=== PATIENT | female | born 1950 | race Caucasian/White ===

== ENCOUNTER 2016-10-12 05:34 | Inpatient (IN) | payer OTHER ==
[2016-10-12] VITALS (9 sets, daily range): BP systolic 148–195; BP diastolic 78–91; PULSE 60–94; RESP 17–18; TEMP 96.2–98.9; O2SAT 96–99
[~2016-10-12] VITALS: Ht 154.9 cm; Wt 61.4 kg
[~2016-10-12 05:34] MED LIST: ASPI81TA82 PO; GLIM1 PO; HYDR50TA94 PO; MELA10TA3 PO; METF-324 PO; TAB-TAB PO; ZOSTINJ SQ
[2016-10-12] MEDS ORDERED: METF500T PO (05:42)
[2016-10-12] MEDS ORDERED: ACETAMINOPHEN/HYDROcodone 325 MG/5 MG TAB PO ONE (05:45)
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
[2016-10-12] MEDS ORDERED: NORC5TAB PO (06:49)
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
[2016-10-12] MEDS ORDERED: MORPHINE SULFATE 4 MG/ML INJ IV PUSH ONE (07:30)
[2016-10-12] MEDS ORDERED: SODIUM CHLORIDE 0.9% FLUSH 10 ML FLUSH IVF PRN (07:30)
[2016-10-12] MEDS: SODIUM CHLOR 0.9% 1000 ML INJ 1,000 ML IV SCH ×3 (07:30→23:30)
[2016-10-12] MEDS ORDERED: ONDANSETRON HCL 4 MG/2 ML VIAL IVP ONE (07:30)
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
[2016-10-12 08:33] LABS: AUTOMATED NEUTROPHIL # 8.1 TH/MM3 (1.8-7.7); BASOPHIL # 0.1 TH/MM3 (0-0.2); BASOPHIL % 0.8 % (0.0-2.0); EOSINOPHIL # 0.1 TH/MM3 (0-0.4); EOSINOPHIL % 1.1 % (0.0-4.0); HEMATOCRIT 31.1 % (35.0-46.0); HEMO FLAGS DIFF FINAL; LYMPH % 12.1 % (9.0-44.0); LYMPHOCYTE # 1.2 TH/MM3 (1.0-4.8); MEAN CELL VOLUME 95.9 FL (80.0-100.0); MEAN CORPUSCULAR HEMOGLOBIN 33.5 PG (27.0-34.0); MEAN CORPUSCULAR HGB CONC 34.9 % (32.0-36.0); MONO % 5.2 % (0.0-8.0); NEUT % 80.8 % (16.0-70.0); PLATELET COUNT 282 TH/MM3 (150-450); RED BLOOD COUNT 3.24 MIL/MM3 (4.00-5.30); RED CELL DISTRIBUTION WIDTH 13.5 % (11.6-17.2); WHITE BLOOD COUNT 10.1 TH/MM3 (4.0-11.0)
[2016-10-12 08:45] LABS: PROTHROMBIN TIME - PATIENT 11.1 SEC (9.8-11.6)
[2016-10-12] MEDS ORDERED: GLUCAGON 1 MG/ML VIAL OTHER PRN (08:45)
[2016-10-12] MEDS ORDERED: SENNOSIDES 8.6 MG TAB PO PRN ×2 (08:45→15:15)
[2016-10-12] MEDS ORDERED: DEXTROSE 50% IN WATER 50 ML VIAL(D50) IV PRN (08:45)
[2016-10-12] MEDS ORDERED: ONDANSETRON HCL 4 MG/2 ML VIAL IVP PRN (08:45)
[2016-10-12] MEDS ORDERED: HYDROmorphone HCL PF 1 MG/ML VIAL IV PRN ×3 (08:45)
[2016-10-12] MEDS ORDERED: SODIUM CHLORIDE 0.9% FLUSH 10 ML FLUSH IV FLUSH PRN ×2 (08:45→15:15)
[2016-10-12 08:47] LABS: ANION GAP 15 MEQ/L (5-15); AST (GOT) 17 U/L (15-37); BICARBONATE 24.5 MEQ/L (21.0-32.0); BLOOD UREA NITROGEN 19 MG/DL (7-18); CHLORIDE 101 MEQ/L (98-107); GLOMERULAR FILTRATION RATE 44 ML/MIN (>89); POTASSIUM 3.9 MEQ/L (3.5-5.1); SODIUM (NA) 140 MEQ/L (136-145)
[2016-10-12 08:50] LABS: ALKALINE PHOSPHATASE 81 U/L (45-117); ALT (GPT) 26 U/L (10-53); TOTAL BILIRUBIN ADULT 0.2 MG/DL (0.2-1.0)
[2016-10-12] MEDS: SODIUM CHLORIDE 0.9% FLUSH 10 ML FLUSH IV FLUSH SCH ×2 (09:00→20:28)
[2016-10-12 09:26] LABS: BLOOD, URINE NEG (NEG); GLUCOSE,URINE 70 mg/dL (NEG); KETONE, URINE TRACE mg/dL (NEG); NITRITE,URINE NEG (NEG); PH, URINE 5.5 (5.0-8.5); TRANSITIONAL EPI CELLS, URINE <1 /hpf; URINE COLOR LIGHT-YELLOW (YELLW/STRAW)
[2016-10-12 09:28] LABS: COMMENT (UR) CATH-CULT NOT IND; CULTURE IF INDICATED CATH CULTURE NOT IND
[2016-10-12] MEDS: INSULIN ASPART SUPPLEMENTAL SCALE SQ SCH ×3 (11:00→20:41)
[2016-10-12] MEDS ORDERED: ONDANSETRON HCL 4 MG/2 ML VIAL IV PUSH ONE (11:21)
[2016-10-12] MEDS ORDERED: NEOSTIGMINE 3 MG/3 ML SYR IV ONE (11:21)
[2016-10-12] MEDS ORDERED: PROPOFOL 200 MG/20 ML AMP IV ONE (11:21)
--- NOTE | 2016-10-12 11:24 | EKG ---
Date Performed: 10/12/2016 Time Performed: 08:24:04 PTAGE: 66 years EKG: Sinus rhythm NORMAL ECG Within the constraints of artifact, no significant change. PREVIOUS TRACING : 05/20/2005 21.23 DOCTOR: Franck Hensley Interpretating Date/Time 10/12/2016 11:24:38
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
[2016-10-12] MEDS ORDERED: RESP: ALBUTEROL 2.5 MG/IPRATROPIUM 0.5 MG NEB (PRN) NEB (11:45)
[2016-10-12] MEDS ORDERED: PANTOPRAZOLE SODIUM 40 MG VIAL IV PUSH SCH (12:00)
[2016-10-12] MEDS ORDERED: INSULIN HUMAN REGULAR 1,000 UNITS/10 ML VIAL SQ PRN (12:15)
[2016-10-12] MEDS ORDERED: POVIDONE IODINE 5% (ANTISEPSIS KIT) 4 APPLICATIONS EACH NARE PRN (12:15)
[2016-10-12] MEDS ORDERED: CHLORHEXIDINE GLUCONATE 2 % 1 PACK (2 CLOTHS) TOPICAL PRN (12:15)
[2016-10-12] MEDS ORDERED: LACTATED RINGER'S 1000 ML IV PRN (12:15)
[2016-10-12] MEDS ORDERED: METOPROLOL TARTRATE 25 MG TAB PO PRN (12:15)
[2016-10-12] MEDS ORDERED: SODIUM CHLORID 0.9% 500 ML IV PRN (12:15)
[2016-10-12] MEDS ORDERED: MIDAZOLAM HCL 2 MG/2 ML VIAL ONE (13:33)
[2016-10-12] MEDS ORDERED: DEXAMETHASONE SOD PHOS 4 MG/ML VIAL ONE (13:33)
[2016-10-12] MEDS ORDERED: fentaNYL CITRATE 250 MCG/5 ML AMP ONE (13:33)
[2016-10-12] MEDS ORDERED: FAMOTIDINE 20 MG/2 ML VIAL ONE (13:34)
[2016-10-12] MEDS ORDERED: ACETAMINOPHEN 1000 MG/100 ML VIAL IV ONE (13:41)
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
[2016-10-12] MEDS ORDERED: ceFAZolin INJ 1,000 MG VIAL ONE (13:57)
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
[2016-10-12] MEDS ORDERED: Post-op Orders (for Pharmacy) MISC XX ONE (15:15)
[2016-10-12] MEDS ORDERED: MORPHINE SULFATE 8 MG/ML INJ IV PUSH PRN (15:15)
[2016-10-12] MEDS ORDERED: NALOXONE HCL 0.4 MG/ML AMP IV PRN (15:15)
[2016-10-12] MEDS ORDERED: ALUMINUM/MAGNESIUM/SIMETH 30 ML CUP PO PRN (15:15)
[2016-10-12] MEDS ORDERED: POVIDONE IODINE 10% SOLN 118 ML BOTTLE TOPICAL PRN (15:15)
[2016-10-12] MEDS ORDERED: TEMAZEPAM 15 MG CAP PO PRN (15:15)
[2016-10-12] MEDS ORDERED: ACETAMINOPHEN 325 MG TAB PO PRN (15:15)
[2016-10-12] MEDS ORDERED: oxyCODONE/ACETAMINOPHEN 5 MG/325 MG TAB PO PRN (15:15)
[2016-10-12] MEDS ORDERED: BISACODYL 10 MG SUPP RECTAL PRN (15:15)
[2016-10-12] MEDS ORDERED: diphenhydrAMINE HCL 25 MG CAP PO PRN (15:15)
[2016-10-12] MEDS ORDERED: *morphine SULFATE 8 MG/ML PERIprocedure ONLY ONE (15:27)
[2016-10-12] MEDS ORDERED: *ENALAPRILAT 1.25 MG/ML VIAL PERIprocedural Use ONLY ONE (15:27)
[2016-10-12] MEDS: LACTATED RINGER'S 1000 ML INJ 1,000 ML IV SCH (15:45)
[2016-10-12] MEDS ORDERED: DO NOT ADM ANY ANTICOAGULANT DRUGS PRN (15:45)
--- NOTE | 2016-10-12 15:48 | RADRPT ---
EXAM DATE/TIME: 10/12/2016 14:56 [facility] COMPARISON: HIP LEFT (AP&LAT 2/3VWS) W AP PELVIS, October 12, 2016, 6:46. INDICATIONS : Post-op percutaneous pinning of left hip fracture. MEDICAL HISTORY : None. SURGICAL HISTORY : None. ENCOUNTER: Subsequent ACUITY: 1 day PAIN SCORE: Non-responsive. LOCATION: Left hip. FINDINGS: The patient is status-post ORIF of left proximal femur fracture. The three screws appear to be in go od position Status-post ORIF. CONCLUSION: Three screws appear to be in good position status-post ORIF of left proximal femur fracture. Ulises Dominguez MD on October 12, 2016 at 15:16 Board Certified Radiologist. This report was verified electronically.
[2016-10-12] MEDS: MORPHINE SULFATE 30 MG/30 ML PCA IV SCH (15:53)
[2016-10-12] MEDS: DOCUSATE SODIUM 50 MG/SENNA 8.6 MG TAB PO SCH (20:31)
[2016-10-12] MEDS: ceFAZolin 2 GM PREMIX 50 ML IV SCH (20:32)
[2016-10-12] MEDS ORDERED: SODIUM CHLORIDE 0.9% FLUSH 10 ML FLUSH IV FLUSH SCH (21:00)
[2016-10-12] MEDS: PCA - TOTAL MG MORPHINE DELIVERED PER SHIFT SCH (21:58)
[2016-10-13] VITALS (7 sets, daily range): BP systolic 129–174; BP diastolic 64–78; PULSE 63–83; RESP 16–18; TEMP 96.9–98; O2SAT 95–99
[2016-10-13] MEDS: LACTATED RINGER'S 1000 ML INJ 1,000 ML IV SCH ×2 (02:33→15:57)
[2016-10-13] MEDS: ceFAZolin 2 GM PREMIX 50 ML IV SCH ×2 (02:33→08:13)
[2016-10-13] MEDS: RIVAROXABAN 10 MG TAB PO SCH (02:34)
[2016-10-13] MEDS: PCA - TOTAL MG MORPHINE DELIVERED PER SHIFT SCH ×3 (05:27→21:54)
[2016-10-13 06:18] LABS: BASOPHIL % 0.4 % (0.0-2.0); HEMATOCRIT 25.6 % (35.0-46.0); HEMO FLAGS DIFF FINAL; LYMPHOCYTE # 0.5 TH/MM3 (1.0-4.8); MEAN CELL VOLUME 97.1 FL (80.0-100.0); MEAN CORPUSCULAR HEMOGLOBIN 33.7 PG (27.0-34.0); MEAN CORPUSCULAR HGB CONC 34.7 % (32.0-36.0); MONO % 6.2 % (0.0-8.0); NEUT % 87.4 % (16.0-70.0); PLATELET COUNT 213 TH/MM3 (150-450); RED BLOOD COUNT 2.64 MIL/MM3 (4.00-5.30); RED CELL DISTRIBUTION WIDTH 13.7 % (11.6-17.2); WHITE BLOOD COUNT 9.1 TH/MM3 (4.0-11.0)
[2016-10-13] MEDS: INSULIN ASPART SUPPLEMENTAL SCALE SQ SCH ×4 (06:41→21:16)
[2016-10-13 07:11] LABS: ALKALINE PHOSPHATASE 65 U/L (45-117); ALT (GPT) 20 U/L (10-53); ANION GAP 10 MEQ/L (5-15); AST (GOT) 13 U/L (15-37); BICARBONATE 24.7 MEQ/L (21.0-32.0); BLOOD UREA NITROGEN 17 MG/DL (7-18); CHLORIDE 102 MEQ/L (98-107); GLOMERULAR FILTRATION RATE 45 ML/MIN (>89); POTASSIUM 4.6 MEQ/L (3.5-5.1); SODIUM (NA) 137 MEQ/L (136-145); TOTAL BILIRUBIN ADULT 0.3 MG/DL (0.2-1.0)
[2016-10-13] MEDS: SODIUM CHLOR 0.9% 1000 ML INJ 1,000 ML IV SCH ×3 (07:30→23:30)
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
[2016-10-13] MEDS: ENALAPRILAT 1.25 MG/ML VIAL IV PUSH PRN (08:08)
[2016-10-13] MEDS: SODIUM CHLORIDE 0.9% FLUSH 10 ML FLUSH IV FLUSH SCH ×2 (08:13→21:00)
[2016-10-13] MEDS: DOCUSATE SODIUM 50 MG/SENNA 8.6 MG TAB PO SCH ×2 (08:14→21:10)
[2016-10-13] MEDS: ONDANSETRON HCL 4 MG/2 ML VIAL IVP PRN (09:17)
[2016-10-13] MEDS ORDERED: ENALAPRILAT 1.25 MG/ML VIAL IV PUSH PRN (10:15)
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
[2016-10-13] MEDS: LISINOPRIL 10 MG TAB PO SCH (11:13)
[2016-10-13] MEDS ORDERED: metFORMIN HCL 500 MG TAB PO SCH (18:00)
[2016-10-13] MEDS: MORPHINE SULFATE 30 MG/30 ML PCA IV SCH (18:11)
[2016-10-13] MEDS: MULTIVITAMINS/MINERALS THERAPEUTIC TAB PO SCH (21:10)
[2016-10-14 00:45] VITALS: BP 137/68; PULSE 86; RESP 17; TEMP 97.9; O2SAT 93
[2016-10-14] MEDS: RIVAROXABAN 10 MG TAB PO SCH (02:52)
[2016-10-14 03:45] VITALS: BP 145/71; PULSE 83; RESP 18; TEMP 98.3; O2SAT 96
[2016-10-14] MEDS: LACTATED RINGER'S 1000 ML INJ 1,000 ML IV SCH ×2 (04:43→17:13)
[2016-10-14] MEDS: PCA - TOTAL MG MORPHINE DELIVERED PER SHIFT SCH ×3 (05:31→22:00)
[2016-10-14] MEDS: INSULIN ASPART SUPPLEMENTAL SCALE SQ SCH ×4 (06:58→20:40)
[2016-10-14] MEDS: SODIUM CHLOR 0.9% 1000 ML INJ 1,000 ML IV SCH ×3 (07:30→23:23)
[2016-10-14 08:00] VITALS: BP 171/78; PULSE 85; RESP 18; TEMP 99.7; O2SAT 95
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
[2016-10-14] MEDS: MULTIVITAMINS/MINERALS THERAPEUTIC TAB PO SCH ×2 (08:06→20:29)
[2016-10-14] MEDS: PANTOPRAZOLE SOD 40 MG DELAYED RELEASE TAB PO SCH (08:07)
[2016-10-14] MEDS: DOCUSATE SODIUM 50 MG/SENNA 8.6 MG TAB PO SCH ×2 (08:07→20:29)
[2016-10-14] MEDS: LISINOPRIL 10 MG TAB PO SCH (08:07)
[2016-10-14] MEDS: oxyCODONE/ACETAMINOPHEN 5 MG/325 MG TAB PO PRN ×3 (08:08→22:44)
[2016-10-14] MEDS: SODIUM CHLORIDE 0.9% FLUSH 10 ML FLUSH IV FLUSH SCH ×2 (09:00→20:29)
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
[2016-10-14] MEDS ORDERED: METF500T PO (09:50)
[2016-10-14] MEDS ORDERED: LISI10TA3 PO (09:50)
[2016-10-14 12:00] VITALS: BP 140/69; PULSE 71; RESP 18; TEMP 97; O2SAT 98
[2016-10-14 16:00] VITALS: BP 143/72; PULSE 76; RESP 18; TEMP 98.5; O2SAT 98
[2016-10-14 20:35] VITALS: BP 171/79; PULSE 75; RESP 18; TEMP 97.8; O2SAT 93
[2016-10-14] MEDS: ONDANSETRON HCL 4 MG/2 ML VIAL IVP PRN (22:43)
[2016-10-15 00:35] VITALS: BP 147/78; PULSE 80; RESP 18; TEMP 98.3; O2SAT 98
[2016-10-15] MEDS: RIVAROXABAN 10 MG TAB PO SCH (03:06)
[2016-10-15] MEDS: oxyCODONE/ACETAMINOPHEN 5 MG/325 MG TAB PO PRN ×5 (03:08→21:11)
[2016-10-15] MEDS: LACTATED RINGER'S 1000 ML INJ 1,000 ML IV SCH ×2 (05:43→18:13)
[2016-10-15] MEDS: PCA - TOTAL MG MORPHINE DELIVERED PER SHIFT SCH ×3 (06:00→22:00)
[2016-10-15 06:08] LABS: BICARBONATE 26.3 MEQ/L (21.0-32.0); POTASSIUM 4.3 MEQ/L (3.5-5.1)
[2016-10-15] MEDS: INSULIN ASPART SUPPLEMENTAL SCALE SQ SCH ×4 (06:34→21:10)
[2016-10-15] MEDS: MAGNESIUM HYDROXIDE SUSP 30 ML CUP PO PRN ×2 (06:38→20:02)
[2016-10-15] MEDS: SODIUM CHLOR 0.9% 1000 ML INJ 1,000 ML IV SCH ×3 (07:30→23:30)
[2016-10-15 08:00] VITALS: BP 163/75; PULSE 72; RESP 20; TEMP 97.4; O2SAT 95
[2016-10-15] MEDS: DOCUSATE SODIUM 50 MG/SENNA 8.6 MG TAB PO SCH ×2 (09:51→20:02)
[2016-10-15] MEDS: MULTIVITAMINS/MINERALS THERAPEUTIC TAB PO SCH ×2 (09:51→20:02)
[2016-10-15] MEDS: SODIUM CHLORIDE 0.9% FLUSH 10 ML FLUSH IV FLUSH SCH ×2 (09:51→20:02)
[2016-10-15] MEDS: PANTOPRAZOLE SOD 40 MG DELAYED RELEASE TAB PO SCH (09:51)
[2016-10-15] MEDS: LISINOPRIL 10 MG TAB PO SCH (09:51)
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
[2016-10-15] MEDS ORDERED: WALKER WHEELS/F1 MIS (10:00)
[2016-10-15] MEDS ORDERED: XARE10TA PO (10:00)
[2016-10-15] MEDS: LACTULOSE SYRUP 20 GM/30 ML CUP PO PRN (11:07)
[2016-10-15 12:00] VITALS: BP 169/81; PULSE 76; RESP 20; TEMP 98; O2SAT 94
[2016-10-15] MEDS ORDERED: OXYC1TAB63 PO (13:49)
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
[2016-10-15 16:00] VITALS: BP 190/91; PULSE 74; RESP 20; TEMP 97.4; O2SAT 97
[2016-10-15] MEDS: ENALAPRILAT 1.25 MG/ML VIAL IV PUSH PRN (17:52)
[2016-10-15 20:05] VITALS: BP 158/75; PULSE 80; RESP 18; TEMP 97.5; O2SAT 97
[2016-10-16] VITALS: BP 194/94; PULSE 75; RESP 16; TEMP 98.2; O2SAT 100
[2016-10-16 00:20] VITALS: BP 174/90
[2016-10-16] MEDS: ENALAPRILAT 1.25 MG/ML VIAL IV PUSH PRN (00:33)
[2016-10-16 01:30] VITALS: BP 158/86; PULSE 70
[2016-10-16] MEDS: oxyCODONE/ACETAMINOPHEN 5 MG/325 MG TAB PO PRN ×3 (02:13→10:37)
[2016-10-16] MEDS: RIVAROXABAN 10 MG TAB PO SCH (02:13)
[2016-10-16] MEDS: PCA - TOTAL MG MORPHINE DELIVERED PER SHIFT SCH (06:00)
[2016-10-16] MEDS: LACTATED RINGER'S 1000 ML INJ 1,000 ML IV SCH (06:06)
[2016-10-16] MEDS: INSULIN ASPART SUPPLEMENTAL SCALE SQ SCH (06:21)
[2016-10-16] MEDS: LACTULOSE SYRUP 20 GM/30 ML CUP PO PRN (06:29)
[2016-10-16 07:13] LABS: MEAN CELL VOLUME 96.7 FL (80.0-100.0); MEAN CORPUSCULAR HEMOGLOBIN 33.1 PG (27.0-34.0); MEAN CORPUSCULAR HGB CONC 34.2 % (32.0-36.0); PLATELET COUNT 223 TH/MM3 (150-450); RED BLOOD COUNT 2.79 MIL/MM3 (4.00-5.30); RED CELL DISTRIBUTION WIDTH 13.2 % (11.6-17.2); REVIEW FLAG FINAL; WHITE BLOOD COUNT 7.1 TH/MM3 (4.0-11.0)
[2016-10-16] MEDS: SODIUM CHLOR 0.9% 1000 ML INJ 1,000 ML IV SCH (07:30)
[2016-10-16 08:00] VITALS: BP 188/86; PULSE 68; RESP 16; TEMP 97.6; O2SAT 98
[2016-10-16] MEDS: MULTIVITAMINS/MINERALS THERAPEUTIC TAB PO SCH (08:58)
[2016-10-16] MEDS: SODIUM CHLORIDE 0.9% FLUSH 10 ML FLUSH IV FLUSH SCH (08:58)
[2016-10-16] MEDS: LISINOPRIL 10 MG TAB PO SCH (08:58)
[2016-10-16] MEDS: DOCUSATE SODIUM 50 MG/SENNA 8.6 MG TAB PO SCH (08:58)
[2016-10-16] MEDS: MAGNESIUM HYDROXIDE SUSP 30 ML CUP PO PRN (08:58)
[2016-10-16] MEDS: PANTOPRAZOLE SOD 40 MG DELAYED RELEASE TAB PO SCH (08:58)
[2016-10-16] MEDS ORDERED: cloNIDine HCL 0.1 MG TAB PO PRN (11:15)
[2016-10-17] MEDS ORDERED: LISINOPRIL 20 MG TAB PO SCH (09:00)
[2016-10-28] MEDS ORDERED: COMMODE 3-IN-11 MIS (14:38)
[2016-10-28] MEDS ORDERED: WHEEMIS3 (14:38)
[2016-10-28] MEDS ORDERED: Tub Transfer Bench (14:38)
[2016-10-29] MEDS ORDERED: POLY17S PO (10:18)
[2016-10-29] MEDS ORDERED: METF850 PO (10:18)
[2016-10-29] MEDS ORDERED: SENN1TAB PO (10:18)
[2016-10-29] MEDS ORDERED: HYDR-3516 PO (10:18)
[2016-10-29] MEDS ORDERED: ASPI325T PO (10:18)
[2016-10-29] MEDS ORDERED: ACET1TAB86 PO (10:18)
[2016-10-29] MEDS ORDERED: ALPR.5 PO (10:18)
[2016-10-29] MEDS ORDERED: AMLO10 PO (10:18)
[2016-10-29] MEDS ORDERED: THERTAB15 PO (10:18)
[2016-10-30] MEDS ORDERED: GLIP5TAB8 PO (09:31)
[2016-10-30] MEDS ORDERED: LEVE250 PO ×2 (09:34→17:51)
== END 2016-10-16 13:02 | DRG 907 ==
LOC: NEPC 05:34 → NEDA 08:46 → N06B 10:43
PROVIDERS: ADMIT Hospitalist; ATTEND Hospitalist
PROC: 0QS734Z Reposition Left Upper Femur with Internal Fixation Device, Percutaneous Approach (ICD-10-PCS; principal; 2016-10-12 13:51)
DX: T74.11XA Adult physical abuse, confirmed, initial encounter (principal); S72.012A Unspecified intracapsular fracture of left femur, initial encounter for closed fracture; I10 Essential (primary) hypertension; E78.5 Hyperlipidemia, unspecified; E11.9 Type 2 diabetes mellitus without complications; D64.9 Anemia, unspecified; Y92.009 Unspecified place in unspecified non-institutional (private) residence as the place of occurrence of the external cause; Y07.01 Husband, perpetrator of maltreatment and neglect; Y04.2XXA Assault by strike against or bumped into by another person, initial encounter; F41.9 Anxiety disorder, unspecified; F31.9 Bipolar disorder, unspecified; M25.512 Pain in left shoulder; K21.9 Gastro-esophageal reflux disease without esophagitis
CPT/HCPCS: 71010; 73030; 73502; 76000; 76937; 80048; 80053; 81001; 82948; 85025; 85027; 85610; 85730; 86850; 86900; 86901; 93005; 94150; 99285; C1713; C1769; C9113; J0131; J0690; J1100; J1170; J1815; J2250; J2270; J2405; J2710; J3010; J7030; J7120

== ENCOUNTER 2016-12-15 21:31 | Inpatient (IN) | payer SELFPAY ==
[~2016-12-15] VITALS: Ht 154.9 cm; Wt 57.2 kg
[~2016-12-15 21:31] MED LIST changes: +ACET1TAB86 PO; +ALPR.5 PO; +AMLO10 PO; +ASPI325T PO; -ASPI81TA82 PO; +COMMODE 3-IN-11 MIS; -GLIM1 PO; +GLIP5TAB8 PO; +HYDR-3516 PO; -HYDR50TA94 PO; +LEVE250 PO; -MELA10TA3 PO; -METF-324 PO; +POLY17S PO; +SENN1TAB PO; -TAB-TAB PO; +THERTAB15 PO; +Tub Transfer Bench; +WALKER WHEELS/F1 MIS; +WHEEMIS3; -ZOSTINJ SQ
[2016-12-15 21:43] VITALS: BP 133/77; PULSE 88; RESP 18; TEMP 97.9; O2SAT 100
[2016-12-15] MEDS ORDERED: SODIUM CHLOR 0.9% 1000 ML INJ 1,000 ML IV SCH (21:47)
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
--- NOTE | 2016-12-15 22:36 | RADRPT ---
EXAM DATE/TIME: 12/15/2016 22:03 [facility] COMPARISON: No previous studies available for comparison. INDICATIONS : Short of breath. MEDICAL HISTORY : None. SURGICAL HISTORY : None. ENCOUNTER: Initial ACUITY: 1 day PAIN SCORE: 0/10 LOCATION: Bilateral chest FINDINGS: A single view of the chest demonstrates the lungs to be symmetrically aerated without evidence of mas s, infiltrate or effusion. The cardiomediastinal contours are unremarkable. Osseous structures are intact. CONCLUSION: The lungs are clear. Polo Van MD on December 15, 2016 at 22:35 Board Certified Radiologist. This report was verified electronically.
--- NOTE | 2016-12-15 22:59 | RADRPT ---
EXAM DATE/TIME: 12/15/2016 22:48 [facility] COMPARISON: No previous studies available for comparison. INDICATIONS : Weakness with altered mental status. RADIATION DOSE: 30.05 CTDIvol (mGy) MEDICAL HISTORY : Cardiovascular disease. Hypertension. Gastroesophageal reflux disease.Diabetes SURGICAL HISTORY : Appendectomy. ENCOUNTER: Initial ACUITY: 3 months PAIN SCALE: 6/10 LOCATION: cranial TECHNIQUE: Multiple contiguous axial images were obtained of the head. Using automated exposure control and adj ustment of the mA and/or kV according to patient size, radiation dose was kept as low as reasonably a chievable to obtain optimal diagnostic quality images. DICOM format image data is available electro nically for review and comparison. FINDINGS: CEREBRUM: The ventricles are normal for age. No evidence of midline shift, mass lesion, hemorrhage or acute in farction. No extra-axial fluid collections are seen. POSTERIOR FOSSA: The cerebellum and brainstem are intact. The 4th ventricle is midline. The cerebellopontine angle i s unremarkable. EXTRACRANIAL: The visualized portion of the orbits is intact. SKULL: The calvaria is intact. No evidence of skull fracture. CONCLUSION: Negative noncontrast CT brain. Polo Van MD on December 15, 2016 at 22:56 Board Certified Radiologist. This report was verified electronically.
[2016-12-15 23:25] LABS: AUTOMATED NEUTROPHIL # 5.2 TH/MM3 (1.8-7.7); BASOPHIL % 0.3 % (0.0-2.0); EOSINOPHIL # 0.1 TH/MM3 (0-0.4); EOSINOPHIL % 0.8 % (0.0-4.0); HEMATOCRIT 29.7 % (35.0-46.0); HEMO FLAGS DIFF FINAL; LYMPH % 21.9 % (9.0-44.0); LYMPHOCYTE # 1.6 TH/MM3 (1.0-4.8); MEAN CELL VOLUME 95.4 FL (80.0-100.0); MEAN CORPUSCULAR HEMOGLOBIN 32.4 PG (27.0-34.0); MEAN CORPUSCULAR HGB CONC 33.9 % (32.0-36.0); MONO % 6.7 % (0.0-8.0); NEUT % 70.3 % (16.0-70.0); PLATELET COUNT 378 TH/MM3 (150-450); RED BLOOD COUNT 3.12 MIL/MM3 (4.00-5.30); RED CELL DISTRIBUTION WIDTH 14.2 % (11.6-17.2); WHITE BLOOD COUNT 7.4 TH/MM3 (4.0-11.0)
[2016-12-15 23:40] LABS: APTT (PATIENT) 27.8 SEC (24.3-30.1)
[2016-12-15] MEDS ORDERED: LORazepam 2 MG/ML VIAL IV PUSH ONE (23:45)
[2016-12-15] MEDS ORDERED: KETOROLAC TROMETHAMINE 30 MG/ML (IVP) VIAL IV PUSH ONE (23:45)
[2016-12-15 23:47] LABS: ALT (GPT) 48 U/L (10-53); ANION GAP 13 MEQ/L (5-15); AST (GOT) 47 U/L (15-37); BICARBONATE 24.6 MEQ/L (21.0-32.0); BLOOD UREA NITROGEN 13 MG/DL (7-18); CHLORIDE 104 MEQ/L (98-107); GLOMERULAR FILTRATION RATE 65 ML/MIN (>89); MAGNESIUM 2.3 MG/DL (1.5-2.5); POTASSIUM 3.9 MEQ/L (3.5-5.1); SODIUM (NA) 142 MEQ/L (136-145)
[2016-12-15] MEDS ORDERED: SLEEPING MED PO (23:49)
[2016-12-15 23:56] LABS: ACETAMINOPHEN LESS THAN 2.0 MCG/ML (10.0-30.0); ALKALINE PHOSPHATASE 132 U/L (45-117); TOTAL BILIRUBIN ADULT 0.2 MG/DL (0.2-1.0)
[2016-12-15 23:57] LABS: CREATINE KINASE 66 U/L (26-192)
[2016-12-16] VITALS (10 sets, daily range): BP systolic 132–165; BP diastolic 67–82; PULSE 89–104; RESP 14–18; TEMP 97.4–98.7; O2SAT 96–99
--- NOTE | 2016-12-16 00:01 | PD ---
Physical Exam Narrative Patient was seen by me and my outreach assistant. Data Data Last Documented VS Vital Signs Date Time Temp Pulse Resp B/P Pulse Ox O2 Delivery O2 Flow Rate FiO2 12/16/16 04:14 104 16 143/76 Room Air 12/16/16 02:24 96 12/15/16 21:43 97.9 Orders Electrocardiogram (12/15/16 21:47) Complete Blood Count With Diff (12/15/16 21:47) Comprehensive Metabolic Panel (12/15/16 21:47) Creatine Kinase (Cpk) (12/15/16 21:47) Prothrombin Time / Inr (Pt) (12/15/16 21:47) Act Partial Throm Time (Ptt) (12/15/16 21:47) Urinalysis - C+S If Indicated (12/15/16 21:47) Magnesium (Mg) (12/15/16 21:47) Thyroid Stimulating Hormone (12/15/16 21:47) Chest, Single Ap (12/15/16 21:47) Ct Brain W/O Iv Contrast(Rout) (12/15/16 21:47) Iv Access Insert/Monitor (12/15/16 21:47) Ecg Monitoring (12/15/16 21:47) Oximetry (12/15/16 21:47) Drug Screen, Random Urine (12/15/16 21:47) Alcohol (Ethanol) (12/15/16 21:47) Salicylates (Aspirin) (12/15/16 21:47) Tylenol (Acetaminophen) (12/15/16 21:47) Lactic Acid (12/15/16 21:47) Levetiracetam (12/15/16 21:47) Sodium Chlor 0.9% 1000 Ml Inj (Ns 1000 M (12/15/16 21:47) Psych Screen (12/15/16 22:25) Lorazepam Inj (Ativan Inj) (12/15/16 23:45) Ketorolac Inj (Toradol Inj) (12/15/16 23:45) Urine Culture (12/16/16 00:45) Lorazepam Inj (Ativan Inj) (12/16/16 02:00) Splint Or Brace Apply/Monitor (12/16/16 02:20) Sling And Swathe (12/16/16 ) Labs Laboratory Tests Test 12/15/16 12/16/16 22:30 00:45 Prothrombin Time 11.0 SEC Prothromb Time International 1.0 RATIO Ratio Activated Partial 27.8 SEC Thromboplast Time Sodium Level 142 MEQ/L Potassium Level 3.9 MEQ/L Chloride Level 104 MEQ/L Carbon Dioxide Level 24.6 MEQ/L Anion Gap 13 MEQ/L Blood Urea Nitrogen 13 MG/DL Creatinine 0.88 MG/DL Estimat Glomerular Filtration 65 ML/MIN Rate Random Glucose 62 MG/DL Lactic Acid Level 3.3 mmol/L Calcium Level 8.8 MG/DL Magnesium Level 2.3 MG/DL Total Bilirubin 0.2 MG/DL Aspartate Amino Transf 47 U/L (AST/SGOT) Alanine Aminotransferase 48 U/L (ALT/SGPT) Alkaline Phosphatase 132 U/L Total Creatine Kinase 66 U/L Total Protein 7.9 GM/DL Albumin 4.0 GM/DL Thyroid Stimulating Hormone 2.080 uIU/ML 3rd Gen Salicylates Level LESS THAN 1.7 MG/DL Acetaminophen Level LESS THAN 2.0 MCG/ML Ethyl Alcohol Level 158 MG/DL White Blood Count 7.4 TH/MM3 Red Blood Count 3.12 MIL/MM3 Hemoglobin 10.1 GM/DL Hematocrit 29.7 % Mean Corpuscular Volume 95.4 FL Mean Corpuscular Hemoglobin 32.4 PG Mean Corpuscular Hemoglobin 33.9 % Concent Red Cell Distribution Width 14.2 % Platelet Count 378 TH/MM3 Mean Platelet Volume 6.6 FL Neutrophils (%) (Auto) 70.3 % Lymphocytes (%) (Auto) 21.9 % Monocytes (%) (Auto) 6.7 % Eosinophils (%) (Auto) 0.8 % Basophils (%) (Auto) 0.3 % Neutrophils # (Auto) 5.2 TH/MM3 Lymphocytes # (Auto) 1.6 TH/MM3 Monocytes # (Auto) 0.5 TH/MM3 Eosinophils # (Auto) 0.1 TH/MM3 Basophils # (Auto) 0.0 TH/MM3 CBC Comment DIFF FINAL Differential Comment Urine Color LIGHT-YELLOW Urine Turbidity CLEAR Urine pH 5.5 Urine Specific [place] 1.012 Urine Protein TRACE mg/dL Urine Glucose (UA) NEG mg/dL Urine Ketones TRACE mg/dL Urine Occult Blood NEG Urine Nitrite NEG Urine Bilirubin NEG Urine Urobilinogen LESS THAN 2.0 MG/DL Urine Leukocyte Esterase SMALL Urine RBC 1 /hpf Urine WBC 10 /hpf Urine Squamous Epithelial 1 /hpf Cells Urine Transitional Epithelial <1 /hpf Cells Urine Renal Epithelial Cells <1 /hpf Urine Bacteria RARE /hpf Urine Mucus FEW /lpf Microscopic Urinalysis Comment CULTURE INDICATED Urine Opiates Screen NEG Urine Barbiturates Screen NEG Urine Amphetamines Screen NEG Urine Benzodiazepines Screen NEG Urine Cocaine Screen NEG Urine Cannabinoids Screen NEG MDM Supervised Visit with [facility]: Yes Interpretation(s) Last Impressions Head CT 12/15/162146 Signed Impressions: Service Date/Time: Thursday, December 15, 2016 22:48 - CONCLUSION: Negative noncontrast CT brain. Polo Van MD Chest X-Ray 12/15/162146 Signed Impressions: Service Date/Time: Thursday, December 15, 2016 22:03 - CONCLUSION: The lungs are clear. Polo Van MD 12 AM. CBC hemoglobin 10.1 hematocrit 29.7. CMP within normal limit. Lactic acid 3.3. Alcohol 158. Narrative Course 12:02 AM. Patient is medically cleared for psychiatric evaluation and disposition. 5:27 AM. Patient has a UTI. Bactrim DS one tablet by mouth given. Suleiman Carrera MD Dec 16, 2016 00:01
[2016-12-16 01:41] LABS: BACTERIA, URINE RARE /hpf; BLOOD, URINE NEG (NEG); GLUCOSE,URINE NEG (NEG); KETONE, URINE TRACE mg/dL (NEG); MUCUS URINE FEW /lpf (OCC); NITRITE,URINE NEG (NEG); PH, URINE 5.5 (5.0-8.5); RENAL EPITHELIAL CELLS <1 /hpf; SQUAMOUS EPITHELIAL CELL URINE 1 /hpf (0-5); TRANSITIONAL EPI CELLS, URINE <1 /hpf; URINE COLOR LIGHT-YELLOW (YELLW/STRAW)
[2016-12-16 01:42] LABS: COMMENT (UR) CULTURE INDICATED; CULTURE IF INDICATED CULTURE INDICATED
[2016-12-16 01:45] LABS: AMPHETAMINE, URINE NEG (NEG); BARBITURATES, URINE NEG (NEG); COCAINE, URINE NEG (NEG)
[2016-12-16] MEDS ORDERED: LORazepam 2 MG/ML VIAL IV PUSH ONE ×2 (02:00→09:00)
[2016-12-16] MEDS ORDERED: SULFAMETHOXAZOLE-TRIMETHOPRIM DS 800-160 MG TAB PO ONE (05:30)
[2016-12-16] MEDS ORDERED: ACETAMINOPHEN/HYDROcodone 325 MG/5 MG TAB PO ONE ×2 (05:45→20:15)
--- NOTE | 2016-12-16 09:08 | EKG ---
Date Performed: 12/15/2016 Time Performed: 23:08:44 PTAGE: 66 years EKG: Sinus rhythm NORMAL ECG PREVIOUS TRACING : 10/12/2016 08.24 DOCTOR: Vitaly Head Interpretating Date/Time 12/16/2016 09:08:08
[2016-12-16] MEDS ORDERED: FLUMAZENIL 0.5 MG/5 ML VIAL IV PUSH PRN (12:15)
[2016-12-16] MEDS ORDERED: LORazepam 2 MG/ML VIAL IV PUSH PRN ×4 (12:15)
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
[2016-12-16] MEDS ORDERED: ALUMINUM/MAGNESIUM/SIMETH 30 ML CUP PO PRN (16:15)
[2016-12-16] MEDS ORDERED: MAGNESIUM HYDROXIDE SUSP 30 ML CUP PO PRN (16:15)
[2016-12-16] MEDS: levETIRAcetam 250 MG TAB PO SCH (20:47)
[2016-12-16] MEDS: LORazepam 2 MG TAB PO PRN (22:14)
[2016-12-17] MEDS: LORazepam 1 MG TAB PO PRN (04:12)
[2016-12-17 04:49] VITALS: BP 120/84; PULSE 88; RESP 16; TEMP 97.8; O2SAT 99
[2016-12-17] MEDS: levETIRAcetam 250 MG TAB PO SCH ×2 (08:13→21:29)
[2016-12-17] MEDS: glipiZIDE 5 MG TAB PO SCH (08:13)
[2016-12-17] MEDS: LORazepam 2 MG TAB PO PRN (08:18)
[2016-12-17 10:59] LABS: ANION GAP 12 MEQ/L (5-15); BICARBONATE 25.1 MEQ/L (21.0-32.0); BLOOD UREA NITROGEN 13 MG/DL (7-18); CHLORIDE 98 MEQ/L (98-107); GLOMERULAR FILTRATION RATE 48 ML/MIN (>89); POTASSIUM 3.7 MEQ/L (3.5-5.1); SODIUM (NA) 135 MEQ/L (136-145)
[2016-12-17 11:00] LABS: HEMOGLOBIN A1b 1.7 %; HEMOGLOBIN LA1C 2.3 %; HEMOGLOBIN P3 3.9 %
[2016-12-17 11:17] LABS: HDL CHOLESTEROL 92.3 MG/DL (40.0-60.0); LDL CHOLESTEROL 116 MG/DL (0-99)
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
[2016-12-17] MEDS: GABAPENTIN 300 MG CAP PO SCH ×2 (13:00→18:00)
[2016-12-17 16:36] VITALS: BP 135/70; PULSE 80; RESP 16; TEMP 96.2; O2SAT 100
[2016-12-17] MEDS ORDERED: MIRTAZAPINE 15 MG TAB PO SCH (21:00)
[2016-12-18] MEDS: LORazepam 2 MG TAB PO PRN (00:26)
[2016-12-18 05:04] VITALS: BP 142/88; PULSE 84; RESP 16; TEMP 97.9; O2SAT 100
[2016-12-18] MEDS: levETIRAcetam 250 MG TAB PO SCH ×2 (09:03→21:36)
[2016-12-18] MEDS: glipiZIDE 5 MG TAB PO SCH (09:04)
[2016-12-18] MEDS: GABAPENTIN 300 MG CAP PO SCH ×3 (09:04→18:08)
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
[2016-12-18 17:48] VITALS: BP 117/68; PULSE 79; RESP 18; TEMP 98.2; O2SAT 99
[2016-12-18] MEDS ORDERED: PRAZOSIN HCL 2 MG CAP PO SCH (21:00)
[2016-12-18] MEDS: QUEtiapine FUMARATE 25 MG TAB PO SCH (21:36)
[2016-12-19] MEDS: LORazepam 1 MG TAB PO PRN (02:13)
[2016-12-19 06:16] VITALS: BP 129/70; PULSE 74; RESP 16; TEMP 97.8; O2SAT 97
[2016-12-19] MEDS: levETIRAcetam 250 MG TAB PO SCH ×2 (08:22→20:15)
[2016-12-19] MEDS: GABAPENTIN 300 MG CAP PO SCH ×3 (08:22→17:45)
[2016-12-19] MEDS: glipiZIDE 5 MG TAB PO SCH (08:22)
--- NOTE | 2016-12-19 10:28 | RADRPT ---
EXAM DATE/TIME: 12/19/2016 10:07 [facility] COMPARISON: No previous studies available for comparison. INDICATIONS : Patient fell complains of pain on left side. MEDICAL HISTORY : Diabetes mellitus type II. Cardiovascular disease. Hypertension. Gastroesophageal reflux diseas e SURGICAL HISTORY : Appendectomy. ENCOUNTER: Initial ACUITY: 4 - 6 days PAIN SCORE: 9/10 LOCATION: Left pelvis FINDINGS: AP view of the pelvis with lateral view of the left hip demonstrates no acute fracture or dislocation . There are 3 partially threaded cannulated screws traversing the left femoral neck and terminating i n the femoral head. There are no findings to indicate hardware failure or loosening. No soft tissue a bnormality is identified. No significant osteoarthritis is present at the hip joint. CONCLUSION: No acute abnormality is identified. There has been prior left proximal femur ORIF. Harjinder Juan MD on December 19, 2016 at 10:25 Board Certified Radiologist. This report was verified electronically.
--- NOTE | 2016-12-19 10:31 | RADRPT ---
EXAM DATE/TIME: 12/19/2016 10:09 [facility] COMPARISON: No previous studies available for comparison. INDICATIONS : Patient fell complains of pain on her left side. MEDICAL HISTORY : Diabetes mellitus type II. Cardiovascular disease. Hypertension. Gastroesophageal reflux diseas e SURGICAL HISTORY : Appendectomy. ENCOUNTER: Initial ACUITY: 4 - 6 days PAIN SCORE: 8/10 LOCATION: Left upper extremity FINDINGS: 4 views of the left shoulder demonstrates no fracture or dislocation. There is mineralization adjacen t to the greater tuberosity. The acromioclavicular joint is intact. No soft tissue abnormality is gianna ntified. Visualized left chest demonstrates no acute finding. CONCLUSION: No acute left shoulder abnormality is identified. Mineralization adjacent to the greater tuberosity l ikely due to calcific tendinosis. Harjinder Juan MD on December 19, 2016 at 10:26 Board Certified Radiologist. This report was verified electronically.
[2016-12-19] MEDS ORDERED: GLUCAGON 1 MG/ML VIAL OTHER PRN (12:00)
[2016-12-19] MEDS ORDERED: DEXTROSE 50% IN WATER 50 ML VIAL(D50) IV PRN (12:00)
[2016-12-19] MEDS ORDERED: FOLIC ACID 1 MG TAB PO ONE ×2 (12:00→14:00)
[2016-12-19] MEDS ORDERED: THIAMINE HCL 100 MG TAB PO ONE ×2 (12:00→14:00)
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
[2016-12-19] MEDS ORDERED: ACETAMINOPHEN 325 MG TAB PO PRN (14:00)
--- NOTE | 2016-12-19 14:27 | HHI.PYPN ---
Subjective Remarks Patient was seen and case discussed with nursing. Patient had a fall this morning where the on-call doctor is made aware and x-rays were ordered. X-rays are negative. Patient was seen and is being followed by the medical team. She denies having been dizzy or confused during this incident. She said she was is anxious and stressed this morning. Says her medications for "night terrors" did not agree with her. Denies auditory visual hallucinations. No tremors, no nausea or vomiting, vital signs within normal limits Objective Alert: Yes [place]: Person (ox4), Place, Situation Mood: Anxious, Depressed Affect: Restricted Memory Intact: Comment (grosly intact) Hallucinations: Other (negative) Delusions: No Delusion Type: Other (not elicited) Suicidal: Ideation (Pasive) Homicidal: Ideation (deneis any) Insight/Judgment Poor Labs Date/Time Procedure Status Source Growth 12/16/16 00:45 Urine Culture - Final Complete Urine Clean Catch 50-100,000 CFU/ML MIXED SHA... Vitals/IOs Vital Signs Date Time Temp Pulse Resp B/P Pulse Ox O2 Delivery O2 Flow Rate FiO2 12/19/16 06:16 97.8 74 16 129/70 97 12/16/16 18:34 Room Air Assessment & Plan Problem List: (1) Post-traumatic stress disorder, acute ICD Code: F43.11 (2) Major depressive disorder, single episode ICD Code: F32.9 Assessment & Plan Continue current treatment plan, DC Minip[employer] Justification for Cont. Inpt. Patient would decompensate in a less restrictive setting Erik Carrero DO Dec 19, 2016 14:27
[2016-12-19] MEDS ORDERED: PILL SPLITTER OTHER PRN (15:00)
[2016-12-19] MEDS: INSULIN ASPART SUPPLEMENTAL SCALE SQ SCH ×2 (16:45→20:31)
[2016-12-19 17:00] VITALS: BP 130/68; PULSE 82; RESP 16; TEMP 98.2; O2SAT 98
[2016-12-19] MEDS: CYCLOBENZAPRINE HCL 10 MG TAB PO PRN (20:14)
[2016-12-19] MEDS: QUEtiapine FUMARATE 25 MG TAB PO SCH (20:15)
[2016-12-19 21:07] LABS: AUTOMATED NEUTROPHIL # 3.8 TH/MM3 (1.8-7.7); BASOPHIL % 0.6 % (0.0-2.0); EOSINOPHIL # 0.2 TH/MM3 (0-0.4); HEMATOCRIT 31.1 % (35.0-46.0); HEMO FLAGS DIFF FINAL; LYMPH % 24.4 % (9.0-44.0); LYMPHOCYTE # 1.5 TH/MM3 (1.0-4.8); MEAN CELL VOLUME 96.3 FL (80.0-100.0); MEAN CORPUSCULAR HEMOGLOBIN 32.5 PG (27.0-34.0); MEAN CORPUSCULAR HGB CONC 33.7 % (32.0-36.0); MONO % 8.7 % (0.0-8.0); NEUT % 62.3 % (16.0-70.0); PLATELET COUNT 278 TH/MM3 (150-450); RED BLOOD COUNT 3.23 MIL/MM3 (4.00-5.30); RED CELL DISTRIBUTION WIDTH 14.4 % (11.6-17.2)
[2016-12-19 21:31] LABS: ALT (GPT) 203 U/L (10-53); ANION GAP 11 MEQ/L (5-15); AST (GOT) 126 U/L (15-37); BICARBONATE 25.4 MEQ/L (21.0-32.0); CHLORIDE 98 MEQ/L (98-107); GLOMERULAR FILTRATION RATE 46 ML/MIN (>89); POTASSIUM 4.1 MEQ/L (3.5-5.1); SODIUM (NA) 134 MEQ/L (136-145)
[2016-12-19 21:43] LABS: ALKALINE PHOSPHATASE 267 U/L (45-117); BLOOD UREA NITROGEN 30 MG/DL (7-18); TOTAL BILIRUBIN ADULT 0.3 MG/DL (0.2-1.0)
[2016-12-20] MEDS: LORazepam 1 MG TAB PO PRN (04:02)
[2016-12-20 05:05] VITALS: BP 128/75; PULSE 81; RESP 16; TEMP 98.5; O2SAT 100
[2016-12-20] MEDS: INSULIN ASPART SUPPLEMENTAL SCALE SQ SCH ×4 (06:10→21:00)
[2016-12-20] MEDS: GABAPENTIN 300 MG CAP PO SCH ×3 (08:40→17:55)
[2016-12-20] MEDS: levETIRAcetam 250 MG TAB PO SCH ×2 (08:40→20:45)
[2016-12-20] MEDS: THIAMINE HCL 100 MG TAB PO SCH (08:41)
[2016-12-20] MEDS: glipiZIDE 5 MG TAB PO SCH (08:42)
[2016-12-20] MEDS: FOLIC ACID 1 MG TAB PO SCH (08:42)
[2016-12-20] MEDS ORDERED: THIAMINE HCL 100 MG TAB PO SCH (09:00)
[2016-12-20] MEDS ORDERED: FOLIC ACID 1 MG TAB PO SCH (09:00)
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
--- NOTE | 2016-12-20 12:38 | HHI.PYPN ---
Subjective Remarks Patient was seen and case discussed with nursing. Patient is to be transferred to the [address] given her recent fall and patient is very oppositional to this change. She states she has made friends here and resents having to transfer. She is perseverative on this and difficult to redirect for the interview. Denies suicidal ideation intent or plan. Compliant with medications Objective Alert: Yes [place]: Person (ox4), Place, Situation Mood: Anxious, Depressed Affect: Other (perseverative) Memory Intact: Comment (grosly intact) Hallucinations: Other (negative) Delusions: No Delusion Type: Other (not elicited) Suicidal: Ideation (Pasive) Homicidal: Ideation (deneis any) Insight/Judgment Poor Labs Test 12/19/16 12/19/16 20:44 20:45 Sodium Level 134 MEQ/L Potassium Level 4.1 MEQ/L Chloride Level 98 MEQ/L Carbon Dioxide Level 25.4 MEQ/L Anion Gap 11 MEQ/L Blood Urea Nitrogen 30 MG/DL Creatinine 1.19 MG/DL Estimat Glomerular Filtration 46 ML/MIN Rate Random Glucose 178 MG/DL Calcium Level 9.1 MG/DL Total Bilirubin 0.3 MG/DL Aspartate Amino Transf 126 U/L (AST/SGOT) Alanine Aminotransferase 203 U/L (ALT/SGPT) Alkaline Phosphatase 267 U/L Total Protein 8.4 GM/DL Albumin 4.4 GM/DL White Blood Count 6.0 TH/MM3 Red Blood Count 3.23 MIL/MM3 Hemoglobin 10.5 GM/DL Hematocrit 31.1 % Mean Corpuscular Volume 96.3 FL Mean Corpuscular Hemoglobin 32.5 PG Mean Corpuscular Hemoglobin 33.7 % Concent Red Cell Distribution Width 14.4 % Platelet Count 278 TH/MM3 Mean Platelet Volume 7.4 FL Neutrophils (%) (Auto) 62.3 % Lymphocytes (%) (Auto) 24.4 % Monocytes (%) (Auto) 8.7 % Eosinophils (%) (Auto) 4.0 % Basophils (%) (Auto) 0.6 % Neutrophils # (Auto) 3.8 TH/MM3 Lymphocytes # (Auto) 1.5 TH/MM3 Monocytes # (Auto) 0.5 TH/MM3 Eosinophils # (Auto) 0.2 TH/MM3 Basophils # (Auto) 0.0 TH/MM3 CBC Comment DIFF FINAL Differential Comment Lactic Acid Level 1.8 mmol/L Date/Time Procedure Status Source Growth 12/16/16 00:45 Urine Culture - Final Complete Urine Clean Catch 50-100,000 CFU/ML MIXED SHA... Vitals/IOs Vital Signs Date Time Temp Pulse Resp B/P Pulse Ox O2 Delivery O2 Flow Rate FiO2 12/20/16 05:05 98.5 81 16 128/75 100 12/16/16 18:34 Room Air Assessment & Plan Problem List: (1) Post-traumatic stress disorder, acute ICD Code: F43.11 (2) Major depressive disorder, single episode ICD Code: F32.9 Assessment & Plan Continue current treatment plan Justification for Cont. Inpt. Patient would decompensate in a less restrictive setting Erik Carrero DO Dec 20, 2016 12:38
[2016-12-20 16:40] LABS: BICARBONATE 26.5 MEQ/L (21.0-32.0); POTASSIUM 3.9 MEQ/L (3.5-5.1)
[2016-12-20 17:54] VITALS: BP 133/72; PULSE 74; TEMP 96.5; O2SAT 95
[2016-12-20] MEDS: CYCLOBENZAPRINE HCL 10 MG TAB PO PRN (20:43)
[2016-12-20] MEDS: QUEtiapine FUMARATE 25 MG TAB PO SCH (21:00)
[2016-12-21 05:15] VITALS: BP 151/81; PULSE 76; RESP 17; TEMP 98.6; O2SAT 98
[2016-12-21] MEDS: INSULIN ASPART SUPPLEMENTAL SCALE SQ SCH ×4 (06:03→21:00)
[2016-12-21] MEDS: GABAPENTIN 300 MG CAP PO SCH ×3 (08:44→17:46)
[2016-12-21] MEDS: FOLIC ACID 1 MG TAB PO SCH (08:44)
[2016-12-21] MEDS: glipiZIDE 5 MG TAB PO SCH (08:44)
[2016-12-21] MEDS: THIAMINE HCL 100 MG TAB PO SCH (08:44)
[2016-12-21] MEDS: levETIRAcetam 250 MG TAB PO SCH ×2 (08:44→21:00)
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
[2016-12-21 14:08] LABS: TOTAL BILIRUBIN ADULT 0.2 MG/DL (0.2-1.0)
[2016-12-21 14:09] LABS: INDIRECT BILIRUBIN 0.1 MG/DL (0.0-0.8)
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
[2016-12-21 17:51] VITALS: BP 150/88; PULSE 79; RESP 18; TEMP 98.3; O2SAT 100
[2016-12-21] MEDS: QUEtiapine FUMARATE 25 MG TAB PO SCH (21:00)
[2016-12-21] MEDS: PRAZOSIN HCL 2 MG CAP PO SCH (21:00)
[2016-12-21] MEDS: CYCLOBENZAPRINE HCL 10 MG TAB PO PRN (22:22)
[2016-12-22 06:25] VITALS: BP 138/73; PULSE 76; RESP 18; TEMP 98.3; O2SAT 98
[2016-12-22] MEDS: INSULIN ASPART SUPPLEMENTAL SCALE SQ SCH ×4 (06:29→20:11)
[2016-12-22] MEDS: THIAMINE HCL 100 MG TAB PO SCH (08:59)
[2016-12-22] MEDS: levETIRAcetam 250 MG TAB PO SCH ×2 (08:59→20:10)
[2016-12-22] MEDS: FOLIC ACID 1 MG TAB PO SCH (08:59)
[2016-12-22] MEDS: GABAPENTIN 300 MG CAP PO SCH ×3 (08:59→18:00)
[2016-12-22] MEDS: glipiZIDE 5 MG TAB PO SCH (09:00)
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
--- NOTE | 2016-12-22 14:04 | HHI.PYPN ---
Subjective Remarks Patient is seen for psychiatric reevaluation today along with medical student Consuelo. Patient shows brighter affect than yesterday, reports improved mood, but still endorsed suicidal thoughts, no specific plan. Patient also reports difficulties sleeping at night, difficulties in falling and maintaining sleep. No withdrawal symptoms at this moment. No visual or auditory hallucinations. Patient is fully oriented 3, as per nurses patient has been calm, cooperative, very social and engage in the unit. Compliant with her medications. Review of Systems Other No somatic complaints Objective Alert: Yes Rush: Person, Place, Date, Situation Mood: Depressed Affect: Restricted, Other Memory Intact: Comment (grosly intact) Hallucinations: Other (negative) Delusions: No Delusion Type: Other (not elicited) Suicidal: Ideation (Pasive) Homicidal: Ideation (deneis any) Insight/Judgment Poor Labs Test 12/21/16 16:32 Hepatitis A IgM Antibody NEGATIVE Hepatitis B Surface Antigen NEGATIVE Hepatitis B Core IgM Antibody NEGATIVE Hepatitis C Antibody NEGATIVE Vitals/IOs Vital Signs Date Time Temp Pulse Resp B/P Pulse Ox O2 Delivery O2 Flow Rate FiO2 12/22/16 06:25 98.3 76 18 138/73 98 Intake and Output 12/21/16 12/21/16 12/22/16 08:00 16:00 00:00 Intake Total 960 ml 1440 ml 1200 ml Balance 960 ml 1440 ml 1200 ml Assessment & Plan Problem List: (1) Post-traumatic stress disorder, acute ICD Code: F43.11 (2) Major depressive disorder, single episode Assessment & Plan: Will increase Seroquel to 100 mg to help with mood stabilization and insomnia. ICD Code: F32.9 Assessment & Plan Estimated LOS: days Justification for Cont. Inpt. She has an elevated risk to decompensate at a lower level of care Joseph Spring MD Dec 22, 2016 14:04
[2016-12-22] MEDS: CYCLOBENZAPRINE HCL 10 MG TAB PO PRN ×2 (14:20→22:03)
[2016-12-22 14:38] LABS: ALT (GPT) 93 U/L (10-53); ANION GAP 8 MEQ/L (5-15); AST (GOT) 26 U/L (15-37); BICARBONATE 28.5 MEQ/L (21.0-32.0); BLOOD UREA NITROGEN 33 MG/DL (7-18); CHLORIDE 102 MEQ/L (98-107); GLOMERULAR FILTRATION RATE 49 ML/MIN (>89); POTASSIUM 3.7 MEQ/L (3.5-5.1); SODIUM (NA) 138 MEQ/L (136-145)
[2016-12-22 14:41] LABS: ALKALINE PHOSPHATASE 183 U/L (45-117); TOTAL BILIRUBIN ADULT 0.3 MG/DL (0.2-1.0)
[2016-12-22 15:34] VITALS: BP 146/84; PULSE 78; RESP 18; TEMP 97.4; O2SAT 98
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
[2016-12-22] MEDS: IBUPROFEN 600 MG TAB PO PRN (20:10)
[2016-12-22] MEDS ORDERED: QUEtiapine FUMARATE 100 MG TAB PO SCH (21:00)
[2016-12-22] MEDS: PRAZOSIN HCL 2 MG CAP PO SCH (21:39)
[2016-12-23] MEDS: INSULIN ASPART SUPPLEMENTAL SCALE SQ SCH ×2 (06:23→11:12)
[2016-12-23] MEDS: IBUPROFEN 600 MG TAB PO PRN (06:23)
[2016-12-23 06:29] VITALS: BP 114/63; PULSE 72; RESP 16; TEMP 97.6; O2SAT 97
[2016-12-23] MEDS: THIAMINE HCL 100 MG TAB PO SCH (08:40)
[2016-12-23] MEDS: levETIRAcetam 250 MG TAB PO SCH (08:40)
[2016-12-23] MEDS: GABAPENTIN 300 MG CAP PO SCH (08:40)
[2016-12-23] MEDS: FOLIC ACID 1 MG TAB PO SCH (08:40)
[2016-12-23] MEDS: glipiZIDE 5 MG TAB PO SCH (08:45)
[2016-12-23 09:08] LABS: ALKALINE PHOSPHATASE 180 U/L (45-117); ALT (GPT) 75 U/L (10-53); ANION GAP 8 MEQ/L (5-15); AST (GOT) 21 U/L (15-37); BLOOD UREA NITROGEN 40 MG/DL (7-18); CHLORIDE 104 MEQ/L (98-107); GLOMERULAR FILTRATION RATE 51 ML/MIN (>89); POTASSIUM 4.1 MEQ/L (3.5-5.1); SODIUM (NA) 139 MEQ/L (136-145); TOTAL BILIRUBIN ADULT 0.3 MG/DL (0.2-1.0)
[2016-12-23] MEDS ORDERED: PRAZ2 PO (09:31)
[2016-12-23] MEDS ORDERED: NEUR300C PO (09:31)
[2016-12-23] MEDS ORDERED: GLIP5 PO (09:31)
[2016-12-23] MEDS ORDERED: QUET1TAB8 PO (09:31)
[2016-12-23] MEDS ORDERED: LEVE250 PO (09:31)
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
== END 2016-12-23 12:00 | disposition home or self-care (01) | DRG 881 ==
LOC: NEPC 21:31 → NEDA 12-16 16:18 → H260 12-16 19:37 → H250 12-20 12:35 → H260 12-21 18:13
PROVIDERS: ADMIT Psychiatry & Neurology Psychiatry; ATTEND Psychiatry & Neurology Psychiatry
DX: F32.9 Major depressive disorder, single episode, unspecified (principal); N17.9 Acute kidney failure, unspecified; E11.9 Type 2 diabetes mellitus without complications; Z79.84 Long term (current) use of oral hypoglycemic drugs; G40.909 Epilepsy, unspecified, not intractable, without status epilepticus; K76.0 Fatty (change of) liver, not elsewhere classified; N39.0 Urinary tract infection, site not specified; I10 Essential (primary) hypertension; R62.7 Adult failure to thrive; F43.11 Post-traumatic stress disorder, acute; Z79.82 Long term (current) use of aspirin; K21.9 Gastro-esophageal reflux disease without esophagitis; E78.5 Hyperlipidemia, unspecified; W19.XXXA Unspecified fall, initial encounter; R07.9 Chest pain, unspecified; F10.10 Alcohol abuse, uncomplicated; Y90.6 Blood alcohol level of 120-199 mg/100 ml; E86.0 Dehydration; R74.0 Nonspecific elevation of levels of transaminase and lactic acid dehydrogenase [LDH]; K80.20 Calculus of gallbladder without cholecystitis without obstruction; Z91.410 Personal history of adult physical and sexual abuse
CPT/HCPCS: 29240; 70450; 71010; 73030; 73501; 76705; 80048; 80053; 80061; 80074; 80076; 80177; 80307; 81001; 82550; 82607; 82948; 83036; 83605; 83735; 84443; 85025; 85610; 85730; 87086; 93005; 96361; 96374; 96375; 96376; J1815; J1885; J2060; J7030

== ENCOUNTER 2017-01-28 16:39 | Emergency (ER) | payer MEDICARE ==
[~2017-01-28] VITALS: Ht 154.9 cm; Wt 50.0 kg
[~2017-01-28 16:39] MED LIST changes: -ACET1TAB86 PO; -ASPI325T PO; +GLIP5 PO; +NEUR300C PO; -POLY17S PO; +PRAZ2 PO; +QUET1TAB8 PO; -SENN1TAB PO; +SLEEPING MED PO
[2017-01-28 16:41] VITALS: BP 152/75; PULSE 92; RESP 20; TEMP 98.3; O2SAT 100
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
[2017-01-28 17:05] VITALS: BP 147/68; PULSE 90; RESP 16; O2SAT 100
[2017-01-28] MEDS ORDERED: TRAM50TA PO (17:39)
[2017-01-28] MEDS ORDERED: GLIP5TAB8 PO (17:39)
[2017-01-28] MEDS ORDERED: ALPR.5 PO (17:39)
[2017-01-28] MEDS ORDERED: QUET5TAB PO (17:39)
--- NOTE | 2017-01-28 17:40 | RADRPT ---
EXAM DATE/TIME: 01/28/2017 17:15 [facility] COMPARISON: SHOULDER LEFT COMPLETE (>2VWS), December 19, 2016, 10:09. INDICATIONS : Patient states left ankle is swollen and painful to touch. MEDICAL HISTORY : None. SURGICAL HISTORY : None. ENCOUNTER: Initial ACUITY: 2 months PAIN SCORE: 5/10 LOCATION: Left Ankle FINDINGS: The ankle mortise is intact. The distal tibia and fibula are intact. There is diffuse soft tissue swelling. CONCLUSION: 1. Soft tissue swelling. 2. No acute fracture identified. Brent Noriega MD on January 28, 2017 at 17:38 Board Certified Radiologist. This report was verified electronically.
[2017-01-28 17:59] LABS: AUTOMATED NEUTROPHIL # 4.7 TH/MM3 (1.8-7.7); BASOPHIL % 0.3 % (0.0-2.0); EOSINOPHIL # 0.2 TH/MM3 (0-0.4); EOSINOPHIL % 2.7 % (0.0-4.0); HEMATOCRIT 31.1 % (35.0-46.0); HEMO FLAGS DIFF FINAL; LYMPHOCYTE # 1.8 TH/MM3 (1.0-4.8); MEAN CELL VOLUME 92.9 FL (80.0-100.0); MEAN CORPUSCULAR HEMOGLOBIN 32.4 PG (27.0-34.0); MEAN CORPUSCULAR HGB CONC 34.9 % (32.0-36.0); MONO % 8.2 % (0.0-8.0); NEUT % 63.8 % (16.0-70.0); PLATELET COUNT 286 TH/MM3 (150-450); RED BLOOD COUNT 3.35 MIL/MM3 (4.00-5.30); RED CELL DISTRIBUTION WIDTH 13.9 % (11.6-17.2); WHITE BLOOD COUNT 7.4 TH/MM3 (4.0-11.0)
[2017-01-28 18:10] LABS: BICARBONATE 27.2 MEQ/L (21.0-32.0); POTASSIUM 3.4 MEQ/L (3.5-5.1)
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
[2017-01-28 18:45] VITALS: BP 145/78; PULSE 77; RESP 17; O2SAT 98
[2017-01-28 19:26] VITALS: BP 145/77
== END 2017-01-28 20:11 | disposition home or self-care (01) ==
LOC: NEPC 16:39
DX: R60.9 Edema, unspecified (principal); M19.90 Unspecified osteoarthritis, unspecified site; F31.9 Bipolar disorder, unspecified; F41.9 Anxiety disorder, unspecified; E78.00 Pure hypercholesterolemia, unspecified; E11.9 Type 2 diabetes mellitus without complications; K21.9 Gastro-esophageal reflux disease without esophagitis; I10 Essential (primary) hypertension; R56.9 Unspecified convulsions
CPT/HCPCS: 73610; 80048; 85025; 93971; 99285; L1906

== ENCOUNTER 2017-02-26 17:44 | Emergency (ER) | payer MEDICARE, OTHER ==
[~2017-02-26] VITALS: Ht 152.4 cm; Wt 58.0 kg
[~2017-02-26 17:44] MED LIST changes: -GLIP5 PO; -HYDR-3516 PO; -LEVE250 PO; -NEUR300C PO; -PRAZ2 PO; -QUET1TAB8 PO; +QUET5TAB PO; +TRAM50TA PO
[2017-02-26 18:03] VITALS: BP 152/69; PULSE 83; RESP 18; TEMP 97.5; O2SAT 99
[2017-02-26 18:07] VITALS: BP 152/69; PULSE 73; RESP 18; O2SAT 100
[2017-02-26] MEDS ORDERED: LEVE250T5 PO (18:24)
[2017-02-26] MEDS ORDERED: HYDR-3516 PO (18:24)
[2017-02-26] MEDS ORDERED: HYDR25TA5 PO (18:24)
[2017-02-26] MEDS ORDERED: SODIUM CHLOR 0.9% 1000 ML INJ 1,000 ML IV ONE (18:27)
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
[2017-02-26] MEDS ORDERED: SODIUM CHLORIDE 0.9% FLUSH 10 ML FLUSH IVF PRN (18:30)
[2017-02-26] MEDS ORDERED: MECLIZINE HCL 25 MG TAB PO ONE (18:30)
[2017-02-26 18:56] VITALS: BP_SYST 142; BP_SYST 153; BP_SYST 160; BP_DIAS 66; BP_DIAS 72; BP_DIAS 76; RESP 20
[2017-02-26 19:25] LABS: BLOOD, URINE NEG (NEG); COMMENT (UR) CULT NOT INDICATED; CULTURE IF INDICATED CULT NOT INDICATED; GLUCOSE,URINE NEG (NEG); KETONE, URINE NEG (NEG); NITRITE,URINE NEG (NEG); SQUAMOUS EPITHELIAL CELL URINE <1 /hpf (0-5); URINE COLOR LIGHT-YELLOW (YELLW/STRAW)
--- NOTE | 2017-02-26 20:08 | RADRPT ---
EXAM DATE/TIME: 02/26/2017 19:18 [place] COMPARISON: CT BRAIN W/O CONTRAST, December 15, 2016, 22:48. INDICATIONS : Dizziness with confusion. RADIATION DOSE: 28.14 CTDIvol (mGy) MEDICAL HISTORY : Seizures. Cardiovascular disease Hypertension.Diabetes SURGICAL HISTORY : Tubal ligation. Appendectomy. ENCOUNTER: Initial ACUITY: 1 day PAIN SCALE: 2/10 LOCATION: Bilateral cranial TECHNIQUE: Multiple contiguous axial images were obtained of the head. Using automated exposure control and adj ustment of the mA and/or kV according to patient size, radiation dose was kept as low as reasonably a chievable to obtain optimal diagnostic quality images. DICOM format image data is available electro nically for review and comparison. FINDINGS: CEREBRUM: The ventricles are normal for age. No evidence of midline shift, mass lesion, hemorrhage or acute in farction. No extra-axial fluid collections are seen. POSTERIOR FOSSA: The cerebellum and brainstem are intact. The 4th ventricle is midline. The cerebellopontine angle i s unremarkable. EXTRACRANIAL: The visualized portion of the orbits is intact. SKULL: The calvaria is intact. No evidence of skull fracture. CONCLUSION: No acute disease. Harjinder Perez MD on February 26, 2017 at 20:06 Board Certified Radiologist. This report was verified electronically.
[2017-02-26 20:15] LABS: AUTOMATED NEUTROPHIL # 11.3 TH/MM3 (1.8-7.7); BASOPHIL # 0.1 TH/MM3 (0-0.2); BASOPHIL % 0.5 % (0.0-2.0); EOSINOPHIL # 0.1 TH/MM3 (0-0.4); EOSINOPHIL % 0.5 % (0.0-4.0); HEMATOCRIT 35.9 % (35.0-46.0); LYMPH % 11.3 % (9.0-44.0); LYMPHOCYTE # 1.6 TH/MM3 (1.0-4.8); MEAN CELL VOLUME 92.7 FL (80.0-100.0); MEAN CORPUSCULAR HEMOGLOBIN 30.7 PG (27.0-34.0); MEAN CORPUSCULAR HGB CONC 33.1 % (32.0-36.0); MONO % 5.2 % (0.0-8.0); NEUT % 82.5 % (16.0-70.0); PLATELET COUNT 222 TH/MM3 (150-450); RED BLOOD COUNT 3.87 MIL/MM3 (4.00-5.30); RED CELL DISTRIBUTION WIDTH 13.1 % (11.6-17.2); WHITE BLOOD COUNT 13.7 TH/MM3 (4.0-11.0)
[2017-02-26 20:16] LABS: HEMO FLAGS AUTO DIFF
[2017-02-26 20:24] LABS: ALKALINE PHOSPHATASE 138 U/L (45-117); ALT (GPT) 31 U/L (10-53); ANION GAP 11 MEQ/L (5-15); AST (GOT) 49 U/L (15-37); BICARBONATE 23.7 MEQ/L (21.0-32.0); BLOOD UREA NITROGEN 21 MG/DL (7-18); CHLORIDE 100 MEQ/L (98-107); GLOMERULAR FILTRATION RATE 33 ML/MIN (>89); MAGNESIUM 2.1 MG/DL (1.5-2.5); SODIUM (NA) 135 MEQ/L (136-145); TOTAL BILIRUBIN ADULT 0.6 MG/DL (0.2-1.0)
[2017-02-26 20:35] LABS: CREATINE KINASE 88 U/L (26-192)
[2017-02-26 20:36] LABS: POTASSIUM 2.4 MEQ/L (3.5-5.1)
[2017-02-26] MEDS ORDERED: POTASSIUM CHLORIDE 20 MEQ CONTROLLED RELEASE TAB PO ONE (20:45)
[2017-02-26] MEDS ORDERED: POTASSIUM CHLOR 20 MEQ PREMIX 100 ML IV ONE (20:45)
[2017-02-26] MEDS ORDERED: POTA10TA2 PO (20:54)
[2017-02-26 20:55] LABS: PLATELET ESTIMATE SMEAR NORMAL (NORMAL); PLATELET MORPHOLOGY CLUMPED (NORMAL); SCAN/DIFF AUTO DIFF CONFIRMED
--- NOTE | 2017-02-26 21:14 | EKG ---
Date Performed: 02/26/2017 Time Performed: 18:40:36 PTAGE: 67 years EKG: Sinus rhythm NONSPECIFIC T-WAVE ABNORMALITY BORDERLINE ECG Compared to prior electrocardiogram, Nonspecific T wav e changes are now present PREVIOUS TRACING : 12/15/2016 23.08 DOCTOR: Franck Hensley Interpretating Date/Time 02/26/2017 21:14:16
== END 2017-02-27 00:07 | disposition home or self-care (01) ==
LOC: NEPE 17:44
DX: E87.6 Hypokalemia (principal); R42 Dizziness and giddiness; R60.0 Localized edema; I10 Essential (primary) hypertension; E11.9 Type 2 diabetes mellitus without complications; G40.909 Epilepsy, unspecified, not intractable, without status epilepticus; F41.9 Anxiety disorder, unspecified; F31.9 Bipolar disorder, unspecified; E78.5 Hyperlipidemia, unspecified; G89.29 Other chronic pain; K21.9 Gastro-esophageal reflux disease without esophagitis; Z79.899 Other long term (current) drug therapy; Z79.84 Long term (current) use of oral hypoglycemic drugs; D72.829 Elevated white blood cell count, unspecified
CPT/HCPCS: 70450; 80053; 81001; 82550; 83735; 84484; 85025; 93005; 96361; 96365; 96366; 99285; J3480; J7030

== ENCOUNTER 2017-10-06 16:12 | Emergency (ER) | payer OTHER, MEDICARE ==
[~2017-10-06 16:12] MED LIST changes: -AMLO10 PO; -COMMODE 3-IN-11 MIS; +HYDR-3516 PO; +HYDR25TA5 PO; +LEVE250T5 PO; +POTA10TA2 PO; -QUET5TAB PO; -SLEEPING MED PO; -THERTAB15 PO; -TRAM50TA PO; -Tub Transfer Bench; -WALKER WHEELS/F1 MIS; -WHEEMIS3
[2017-10-06 16:23] VITALS: BP 181/78; PULSE 80; RESP 20; TEMP 98.1; O2SAT 100
[2017-10-06] MEDS ORDERED: MEDR4PAK PO (16:50)
[2017-10-06] MEDS ORDERED: TRIA.1%T TOPICAL (16:50)
--- NOTE | 2017-10-06 16:50 | PD ---
HPI Chief Complaint: Skin Problem Time Seen by Provider: 16:36 Travel History International Travel<30 days: No Contact w/Intl Traveler<30days: No Traveled to known affect area: No History of Present Illness HPI 67-year-old female presents to the emergency department for evaluation of an itchy rash to her arms, legs, trunk that has been ongoing for approximately 3 weeks. She states she saw her primary care physician initially who gave her prescription for permethrin. She has used this 3 times over the past 3 weeks without improvement. She then followed up just recently and was given a prescription for an antihistamine, but she did not fill this because she states that she did not think it would work. Patient denies any pain. Symptoms have been gradually worsening. No fevers or chills. She states she has tried multiple [id number] creams without improvement. No exacerbating or alleviating factors. Mild severity. PFSH Past Medical History Arthritis: Yes Blood Disorders: No Bipolar Disorder: Yes Anxiety: Yes Depression: Yes Heart Rhythm Problems: No Cancer: No Cardiovascular Problems: Yes High Cholesterol: Yes Chest Pain: Yes Congestive Heart Failure: No Diabetes: Yes Diminished Hearing: No Endocrine: Yes Gastrointestinal Disorders: Yes GERD: Yes Genitourinary: No Hypertension: Yes Immune Disorder: No Musculoskeletal: Yes Neurologic: No Psychiatric: Yes Reproductive: No Respiratory: No Immunizations Current: Yes Seizures: Yes (ONE-TIME VALIUM WITHDRAWAL SEIZURE) Thyroid Disease: No Menopausal: Yes Para: 3 Tubal Ligation: Yes Past Surgical History Abdominal Surgery: Yes (unknown abd sx) Appendectomy: Yes Gynecologic Surgery: Yes (tubal litigation) Pacemaker: No Other Surgery: Yes Social History Alcohol Use: Yes (OCCASIONALLY) Tobacco Use: No Substance Use: No (denies) Allergies-Medications (Allergen,Severity, Reaction): Uncoded Allergies: ANTIDPRESSANTS (Adverse Reaction, Mild, BIZARRE BEHAVIOR, 12/29/16) ANTIHISTAMINES (Adverse Reaction, Mild, JITTERY, 12/15/16) Reported Meds & Prescriptions Reported Meds & Active Scripts Active Potassium Chloride ER (Potassium Chloride) 10 Meq Tab 10 Meq PO BID 3 Days Reported Hydrochlorothiazide 25 Mg Tab 25 Mg PO DAILY Hydrocodone-Acetaminophen 5-325 mg Tab 1 Tab PO Q6H PRN Levetiracetam 250 Mg Tab 250 Mg PO BID Glipizide 5 Mg Tab 5 Mg PO BIDAC Take 30 minutes before a meal Xanax (Alprazolam) 0.5 Mg Tab 0.5 Mg PO DAILY PRN Review of Systems Except as stated in HPI: all other systems reviewed are Neg Physical Exam Narrative GENERAL: Well-nourished, well-developed female patient, afebrile. SKIN: Focused skin assessment warm/dry. Patient has multiple scabs to the bilateral upper extremities. No surrounding erythema or evidence of cellulitis. No scabs in between the digits. HEAD: Normocephalic. Atraumatic. EYES: No scleral icterus. No injection or drainage. NECK: Supple, trachea midline. No JVD or lymphadenopathy. CARDIOVASCULAR: Regular rate and rhythm without murmurs, gallops, or rubs. RESPIRATORY: Breath sounds equal bilaterally. No accessory muscle use. Lung sounds are clear to auscultation peer GASTROINTESTINAL: Abdomen soft, non-tender, nondistended. Data Data Last Documented VS Vital Signs Date Time Temp Pulse Resp B/P (MAP) Pulse Ox O2 Delivery O2 Flow Rate FiO2 10/06/17 16:23 98.1 80 20 181/78 (112) 100 Orders Orders Dexamethasone Inj (Decadron Inj) (10/06/17 17:00) MDM Medical Decision Making Medical Screen Exam Complete: Yes Emergency Medical Condition: Yes Medical Record Reviewed: Yes Differential Diagnosis Contact dermatitis versus scabies versus eczema versus insect bites Narrative Course 67-year-old female presents to the emergency department for evaluation of an itchy rash for 3 weeks. She states that she has used permethrin cream 3 times recently without improvement. This makes scabies less likely. Patient is given dexamethasone 8 mg IM. She will be discharged with a prescription for Medrol Dosepak and triamcinolone cream. She is instructed to follow-up with a farm planner. She agrees. The patient was discharged in stable condition with instructions, including return instructions and follow up instructions. Diagnosis Primary Impression: Skin rash Referrals: [facility] call for appointment Patient Instructions: Acute Rash (ED), General Instructions Additional Instructions: Take Medrol Dosepak. Start this tomorrow. Use triamcinolone cream as directed. Follow-up with a farm planner. Return to the emergency department for any acute worsening of symptoms. Med/Other Pt SpecificInfo: Prescription(s) given Scripts Triamcinolone Topical (Triamcinolone Topical) 0.1% Cream 1 APPLIC TOPICAL BID for Inflammation, #1 TUBE 0 Refills Prov: Arlin Pond 10/06/17 Methylprednisolone Dosepak (Medrol Dosepak) 4 Mg Dspk 4 MG PO DIRECTED, #1 DSPK 0 Refills Per Pharmacist direction Prov: Arlin Pond 10/06/17 Disposition: 01 DISCHARGE HOME Condition: Stable Arlin Pond October 06, 2017 16:50
[2017-10-06] MEDS ORDERED: DEXAMETHASONE SOD PHOS 4 MG/ML VIAL IM ONE (17:00)
[2017-10-06] MEDS ORDERED: SERO50TA PO (17:05)
[2017-10-06] MEDS ORDERED: LISI-515 PO (17:05)
[2017-10-06] MEDS ORDERED: [UNRECOGNIZED DRUG - OTHER] (17:05)
== END 2017-10-06 17:20 | disposition home or self-care (01) ==
LOC: NEPK 16:12
DX: R21 Rash and other nonspecific skin eruption (principal); E11.9 Type 2 diabetes mellitus without complications; I10 Essential (primary) hypertension; Z79.84 Long term (current) use of oral hypoglycemic drugs
CPT/HCPCS: 96372; 99283; J1100